=== PATIENT | female | born 1980 | race African-American/Black ===

== ENCOUNTER 2017-04-30 09:49 | Emergency (ER) | payer BC ==
[2017-04-30 10:01] VITALS: BP 105/49
--- NOTE | 2017-04-30 11:34 | Emergency Department Report ---
Minor Respiratory - HPI Chief Complaint: Sore Throat Stated Complaint: NECK/NOSE PAIN Time Seen by Provider: 04/30/17 11:01 Duration: 2 Days Pain Location: Facial, Throat, Ear (pressure) Severity: mild Minor Respiratory: Yes Sore Throat, Yes Able to Tolerate Fluids, Yes Ear Pain, Yes Cough (with post nasal drip), No Rhinorrhea, No Sick Contacts, No Hemoptysis , No Chest Pain, No Shortness of Breath, No Fever ED Review of Systems ROS: Stated complaint: NECK/NOSE PAIN Other details as noted in HPI Comment: All other systems reviewed and negative Constitutional: denies: fever, malaise Eyes: denies: eye pain, eye discharge, vision change ENT: throat pain, congestion (sinus). denies: ear pain, dental pain, hearing loss, epistaxis ED Past Medical Hx - Past Medical History Previous Medical History?: Yes Additional medical history: Vaginal delivery x 2 - Surgical History Past Surgical History?: No Additional Surgical History: nasal - Social History Smoking Status: Never Smoker Substance Use Type: Non Opiate Pain, Other - Medications Home Medications: Home Medications Medication Instructions Recorded Confirmed Last Taken Type Amoxicillin 500 mg PO BID #20 capsule 04/30/17 Unknown Rx Fluticasone [Flonase] 1 spray NS QDAY #1 bottle 04/30/17 Unknown Rx methylPREDNISolone [Medrol] 4 mg PO DAILY #1 tab.ds.pk 04/30/17 Unknown Rx Minor Respiratory Exam - Exam General: Vital signs noted. No distress. Alert and acting appropriately. HEENT: Yes Pharyngeal Erythema, Yes Moist Mucous Membranes, Yes Frontal Tenderness, Yes Maxillary Tenderness, No Pharyngeal Exudates, No Rhinorrhea, No Conjuctival Injection Ear: Both TM Erythema, Neither TM Bulge, Neither EAC Pain, Neither EAC Discharge Neck: Yes Supple, No Adenopathy Lungs: Yes Good Air Exchange, No Wheezes, No Ronchi, No Stridor, No Cough, No Labored Respirations, No Retractions, No Use of Accessory Muscles, No Other Abnormal Lung Sounds Heart: Yes Regular, No Murmur Abdomen: Yes Normal Bowel Sounds, No Tenderness, No Peritoneal Signs Skin: No Rash, No Edema Neurologic: Alert and oriented, no deficits. Musculoskeletal: Unremarkable. ED Course Vital Signs 04/30/17 09:56 Temperature 98 F Pulse Rate 84 Respiratory 20 Rate Blood Pressure 105/49 O2 Sat by Pulse 99 Oximetry - Reevaluation(s) Reevaluation #1: 04/30/17 11:33 vss no fever non ill non toxic no cp no sob otherwise healthy s/s sinusitis educated and dc w dc poc ED Medical Decision Making - Medical Decision Making see note - Differential Diagnosis urti Critical care attestation.: If time is entered above; I have spent that time in minutes in the direct care of this critically ill patient, excluding procedure time. ED Disposition Clinical Impression: Sinusitis Disposition: DC-01 TO HOME OR SELFCARE Is pt being admited?: No Does the pt Need Aspirin: No Condition: Stable Instructions: Sinusitis (ED) Additional Instructions: rest hydrate with water well follow up in 48 hours with primary doctor- name provided below motrin or tylenol over the counter for pain or fever medications as ordered today return to ER if fever over 101 that will not come down with tylenol and or motrin Referrals: PRIMARY CARE, [Primary Care Provider] - 3-5 Days SHAGGY CARVALHO MD [Staff Physician] - 3-5 Days Time of Disposition: 11:30
== END 2017-04-30 11:56 | disposition home or self-care (01) ==
LOC: ED 09:49
DX: J32.8 Other chronic sinusitis (principal); Z91.013 Allergy to seafood
CPT/HCPCS: 99282